=== PATIENT | female | born 1950 | race Caucasian/White ===

== ENCOUNTER → 2019-01-17 | Day surgery (SDC) | payer MEDICARE, OTHER ==
[~2019-01-17] MED LIST: FENTANYL CITRATE/PF 100MCG/2 ML INJ ONE; MIDAZOLAM HCL 2 MG/2 ML VIAL ONE; MULTI-VITAMIN1 EACH PO; OR PHACO EYE KIT ONE; PREOP PHACO EYE KIT ONE; TOBRAMYCIN/DEXAMETHASONE(OPTH) 3.5 GM TUBE ONE; VITAMIN D400 UNIT PO
--- OUTSIDE RECORDS SUMMARY | 2019-01-17 10:17 | XMS REPORT | Clinical Summary ---
Author Author [facility] Address Unknown Phone Unavailable Care Team Providers Care Automation Test Engineer Name Role Phone Kamila Stuart MD PCP Allergies Comments Active Allergy Reactions Severity Noted Date Sulfa (Sulfonamide Itching 06/02/2017 Antibiotics) Medications End Date Status Medication Sig Dispensed Refills Start Date Active MULTIVITAMIN ORAL Take by 0 mouth. Active cholecalciferol, vitamin Take 1,000 0 D3, (VITAMIN D3) 1,000 Units by unit tablet mouth daily. 07/21/2018 Discontinued (Therapy completed) CALCIUM CARBONATE Take by 0 (CALCIUM 600 ORAL) mouth. 07/21/2018 Discontinued (Therapy completed) BIOTIN ORAL Take by mouth 0 daily. Active Problems Problem Noted Date Osteoporosis 06/29/2016 Encounters Care Team Description Date Type Specialty Xochilt De Jesus MA 07/28/2018 Telephone Endocrinology Anjum Cortez MD Osteoporosis without current pathological fracture, unspecified osteoporosis type (Primary Dx) 07/21/2018 Office Visit Endocrinology Anjum Cortez MD Osteoporosis, unspecified osteoporosis type, unspecified pathological fracture presence 07/21/2018 Ancillary Radiology Procedure Radha Chavis 07/20/2018 Telephone Endocrinology Xochilt De Jesus MA Osteoporosis, unspecified osteoporosis type, unspecified pathological fracture presence (Primary Dx) 06/22/2018 Orders Only Endocrinology after 01/16/2018 Immunizations Name Administration Dates Next Due FLUZONE HIGH-DOSE PF 03/15/2018 Pneumococcal Conjugate 03/15/2018 13-[facility] Family History Medical History Relation Name Comments Heart disease Father Cancer Mother breast at age 85 Osteoporosis Mother Relation Name Status Comments Father Mother Social History Date Tobacco Use Types Packs/Day Years Used Never Smoker Smokeless Tobacco: Never Used Drinks/Week oz/Week Comments Alcohol Use Socially Yes Sex Assigned at Date Recorded Not on file Industry Job Start Date Occupation Not on file Not on file Not on file Travel End Travel History Travel Start No recent travel history available. Last Filed Vital Signs Reading Time Taken Comments Vital Sign 152/82 07/21/2018 2:07 PM CDT Blood Pressure 76 07/21/2018 2:07 PM CDT Pulse - - Temperature - - Respiratory Rate - - Oxygen Saturation - - Inhaled Oxygen Concentration 50.5 kg (111 lb 6.4 oz) 07/21/2018 2:07 PM CDT Weight 158.8 cm (5' 2.5") 07/21/2018 2:07 PM CDT Height 20.05 07/21/2018 2:07 PM CDT Body Mass Index Plan of Treatment Health Maintenance Due Date Last Done Comments BREAST CANCER SCREENING 2001 COLONOSCOPY SCREENING 2001 SHINGLES VACCINES (#1) 2001 INFLUENZA VACCINE 12/01/2018 03/15/2018 65+ PNEUMOCOCCAL VACCINE 03/15/2019 03/15/2018 (2 of 2 - PPSV23) Procedures Comments Procedure Name Priority Date/Time Associated Diagnosis BONE DENSITY Routine 07/21/2018 Osteoporosis, unspecified 1:53 PM CDT osteoporosis type, unspecified pathological fracture presence after 01/16/2018 Results * Bone Density (07/21/2018 1:53 PM CDT) Specimen Narrative Performed At [facility] [address] [place] [id number] Bone Density Report Name: Britt Cuevas Sex: Female Age: 68 Ethnicity: White Height: 62.5 in Referring Provider: ANJUM CORTEZ Date of : 1950 Weight: 111.4lb Indication: Postmenopausal osteoporosis Accession number: [id number] Bone Density: Exam date 07/21/2018 Region BMD (g/cm2) T-score Z-score Classification AP Spine(L1-L4) 0.827 -2.0 -0.1 Osteopenia Femoral Neck(Left) 0.561 -2.6 -1.0 Osteoporosis Total Hip(Left) 0.625 -2.6 -1.3 Osteoporosis Femoral Neck(Right) 0.567 -2.5 -0.9 Osteoporosis Total Hip(Right) 0.639 -2.5 -1.1 Osteoporosis Total Hip Mean 0.632 -2.6 -1.2 Osteoporosis World Health Organization criteria for BMD impression classify patients as Normal (T-score at or above 1.0), Osteopenia (T-score between 1.0 and 2.5), or Osteoporosis (T-score at or below 2.5). 10-year Fracture Risk: Major Osteoporotic Fracture 12% Hip Fracture 3.0% Reported Risk Factors: [place] (), T-score(WHO)=-2.5, BMI=20.1 FRAX Version 3.08. Fracture probability calculated for an untreated patient. Fracture probability may be lower if the patient has received treatment. Previous Exams: Region Exam Date Age BMD (g/cm2) T-score BMD Change vs. Baseline BMD Change vs. Previous AP Spine(L1-L4) 07/21/2018 68 0.827 -2.0 0.2% 0.2% 06/02/2017 67 0.825 -2.0 Total Hip(Left) 07/21/2018 68 0.625 -2.6 4.9%* 4.9%* 06/02/2017 67 0.596 -2.8 Total Hip(Right) 07/21/2018 68 0.639 -2.5 5.4%* 5.4%* 06/02/2017 67 0.607 -2.7 *Denotes significance at 95% confidence level, LSC for AP Spine=0.022 g/cm2,LSC for Total Hip=0.027 g/cm2 Impression: The patient has osteoporosis, based on the Left Total Hip T-score. The patient has an estimated ten-year risk of hip fracture of 3% and an estimated ten-year risk of major fracture of 12%, based on the WHO FRAX algorithm. Monitoring: No significant bone loss was observed. Discussion: INCREASED RISK OF FRACTURE. BONE DENSITY IS UNDESIRABLY LOW AT ONE OR MORE SKELETAL SITES, CONSISTENT WITH POSTMENOPAUSAL OSTEOPOROSIS. This patient's lowest T-score meets the World Health Organization's (WHO) criteria for osteoporosis at one or more sites (T-score -2.5 or below). In untreated patients, the risk of osteoporotic fracture increases approximately two-fold for each 1.0 SD decrease in T-score.Low bone density is not the only risk factor for fracture; also consider factors such as patient's age, frailty or poor health, risk of falling, risk of injury, previous osteoporotic fracture, family history of osteoporosis, cigarette smoking, low body weight, etc. Not everyone with low bone mineral density has osteoporosis; osteomalacia and other metabolic bone disorders should also be considered. Patients who have osteoporosis should be evaluated for specific diseases and conditions (secondary causes) that may cause or contribute to bone loss. The [place] [employer] Endocrinologists (AACE) and National Osteoporosis Foundation (NOF) recommend pharmacologic intervention for all postmenopausal women whose T-score is in this range. The patient should follow a healthful lifestyle (good nutrition with adequate calcium and vitamin D, and appropriate weight-bearing exercise). Follow-Up: Consider a repeat BMD and Vertebral Fracture Assessment (VFA) exam in 1-2 years or sooner if medically necessary, to reassess this patient's status. Reported by: Anjum Cortez MD, [facility] [place], [facility] on 07/22/2018 6:12:00 AM. Performing Organization Address City/State/Zipcode Phone Number [facility] [address] [place] [address] after 01/16/2018 Insurance Type Payer Benefit Subscriber ID Effective Phone Address Plan / Dates Group Medicare MEDICARE MEDICARE xxxxxxxxxx [id number] [place], PART A AND resent [place] B PPO AETNA AETNA PPO xxxxxxxxxx [id number] OPEN resent CHOICE Advance Directives For more information, please contact: [phone] Patient Neonatal Intensive Care Nurse Explanation Type Date Recorded Advance Directives, Living Will and Medical Power of Environmental Sampling Technician
--- OUTSIDE RECORDS SUMMARY | 2019-01-17 10:17 | XMS REPORT ---
Author Author [facility] Address Unknown Phone Unavailable Care Team Providers Care Apartment Groundskeeper Name Role Phone Unavailable Unavailable Payers Payer Name Policy Type Policy Number Effective Date Expiration Date Problems This patient has no known problems. Allergies, Adverse Reactions, Alerts This patient has no known allergies or adverse reactions. Medications This patient has no known medications.
[2019-01-17 13:45] VITALS: BP 127/58
== END | disposition home or self-care (01) ==
LOC: OR 09:46
PROVIDERS: ATTEND Ophthalmology
DX: H25.11 Age-related nuclear cataract, right eye (principal)
CPT/HCPCS: 66984; J2250; J3010